=== PATIENT | female | born 1995 | race Caucasian/White ===

== ENCOUNTER 2019-01-18 11:09 | Emergency (ER) | payer OTHER ==
[2019-01-18] MEDS ORDERED: METOCLOPRAMIDE 5 MG/ML 2 ML VIAL IVP STA (11:46)
[2019-01-18] MEDS ORDERED: SODIUM CHLORIDE 0.9% 1,000 ML IV STA (11:46)
--- NOTE | 2019-01-18 12:01 | ED ---
Abdominal Pain HPI - General Chief Complaint: Abdominal Pain Stated Complaint: Abd.pain/6wks Time Seen by Provider: 01/18/19 11:17 Source: patient Mode of arrival: ambulatory Limitations: no limitations - History of Present Illness Initial Comments: Patient is a 23-year-old female presenting to emergency Department with complaints of lower abdominal pain and cramping that started yesterday. Patient is approximately 6 weeks . Patient also admits to spotting yesterday. No spotting today. Patient states she feels like the cramping is getting worse. Patient does have history of piece he was asked. Patient is also a diabetic and takes metformin. Patient has an appointment with her OB in a few weeks. This is patient's first . Patient states history of cholecystectomy. No other abdominal surgeries. Patient denies fever, chills, chest pain, shortness of breath, diarrhea. Patient does admit to nausea and vomiting during her . Patient has no other complaints at this time upon arrival to ER vital signs are stable. - Related Data Allergies Allergy/AdvReac Type Severity Reaction Status Date / Time ibuprofen [From Motrin] Allergy Rash/Hives Verified 01/18/19 11:17 ketorolac [From Toradol] Allergy Rash/Hives Verified 01/18/19 11:17 latex Allergy Rash/Hives Verified 01/18/19 11:17 Penicillins Allergy Unknown Verified 01/18/19 11:17 Childhood Review of Systems ROS Statement: Those systems with pertinent positive or pertinent negative responses have been documented in the HPI. ROS Other: All systems not noted in ROS Statement are negative. Past Medical History Past Medical History: Asthma, Diabetes Mellitus Additional Past Medical History / Comment(s): GASTROPARESIS PYLORIC STENOSIS PCS History of Any Multi-Drug Resistant Organisms: None Reported Past Surgical History: Cholecystectomy, Orthopedic Surgery Additional Past Surgical History / Comment(s): KNEE SURG Past Psychological History: Anxiety, Depression Smoking Status: Former smoker Past Alcohol Use History: None Reported, Occasional Past Drug Use History: Marijuana General Exam - General Exam Comments Initial Comments: GENERAL: Well-appearing, well-nourished and in no acute distress. HEAD: Atraumatic, normocephalic. EYES: Pupils equal round and reactive to light, extraocular movements intact, sclera anicteric, conjunctiva are normal. ENT: TMs normal, nares patent, oropharynx clear without exudates. Moist mucous membranes. NECK: Normal range of motion, supple without lymphadenopathy or JVD. LUNGS: Breath sounds clear to auscultation bilaterally and equal. No wheezes rales or rhonchi. HEART: Regular rate and rhythm without murmurs, rubs or gallops. ABDOMEN: Tenderness to the lower abdomen, suprapubic area. Soft, normoactive bowel sounds. No guarding, no rebound. No masses appreciated. : Deferred EXTREMITIES: Normal range of motion, no pitting or edema. No clubbing or cyanosis. NEUROLOGICAL: Cranial nerves II through XII grossly intact. Normal speech, normal gait. PSYCH: Normal mood, normal affect. SKIN: Warm, Dry, normal turgor, no rashes or lesions noted. Limitations: no limitations Course Vital Signs 01/18/19 11:12 Temperature 98.1 F Pulse Rate 97 Respiratory 18 Rate Blood Pressure 145/84 O2 Sat by Pulse 97 Oximetry Medical Decision Making - Medical Decision Making Patient is a 23-year-old female presenting with lower abdominal cramping since yesterday as well as spotting. Patient is 6 weeks . This is her first . Patient denies any fever, chills. On exam patient has tenderness of lower abdomen. CBC and CMP is within normal limits. Glucose is slightly elevated at 217. Patient is a diabetic. HCG Quant is 13,000. UA shows 4+ glucose, 1+ ketones. No signs of infection. No blood. Patient is blood type A+. Ultrasound reveals a single intrauterine with heart rate of 118. No other abnormalities seen. Patient is stable for discharge at this time. Patient will follow-up with OB as discussed in a few weeks. Return parameters were discussed with the patient she verbalized understanding. Discussed with patient sees increase her fluid intake and monitor her blood glucose. Patient is agreement with this plan of care. Discussed with Dr. Flores. - Lab Data Result diagrams: 01/18/19 11:50 01/18/19 11:50 Lab Results 01/18/19 01/18/19 01/18/19 Range/Units 11:50 11:50 11:50 WBC 8.8 (3.8-10.6) k/uL RBC 4.31 (3.80-5.40) m/uL Hgb 13.0 (11.4-16.0) gm/dL Hct 38.5 (34.0-46.0) % MCV 89.3 (80.0-100.0) fL MCH 30.1 (25.0-35.0) pg MCHC 33.7 (31.0-37.0) g/dL RDW 15.0 (11.5-15.5) % Plt Count 297 (150-450) k/uL Neutrophils % 71 % Lymphocytes % 19 % Monocytes % 5 % Eosinophils % 3 % Basophils % 1 % Neutrophils # 6.3 (1.3-7.7) k/uL Lymphocytes # 1.7 (1.0-4.8) k/uL Monocytes # 0.4 (0-1.0) k/uL Eosinophils # 0.2 (0-0.7) k/uL Basophils # 0.0 (0-0.2) k/uL Sodium 136 L (137-145) mmol/L Potassium 4.2 (3.5-5.1) mmol/L Chloride 104 (98-107) mmol/L Carbon Dioxide 23 (22-30) mmol/L Anion Gap 9 mmol/L BUN 12 (7-17) mg/dL Creatinine 0.48 L (0.52-1.04) mg/dL Est GFR (CKD-EPI)AfAm >90 (>60 ml/min/1.73 sqM) Est GFR (CKD-EPI)NonAf >90 (>60 ml/min/1.73 sqM) Glucose 217 H (74-99) mg/dL Calcium 9.2 (8.4-10.2) mg/dL Total Bilirubin 0.4 (0.2-1.3) mg/dL AST 20 (14-36) U/L ALT 38 (9-52) U/L Alkaline Phosphatase 52 (38-126) U/L Total Protein 6.9 (6.3-8.2) g/dL Albumin 3.9 (3.5-5.0) g/dL HCG, Quant 03103.1 mIU/mL Urine Color Urine Appearance (Clear) Urine pH (5.0-8.0) Ur Specific [place] (1.001-1.035) Urine Protein (Negative) Urine Glucose (UA) (Negative) Urine Ketones (Negative) Urine Blood (Negative) Urine Nitrite (Negative) Urine Bilirubin (Negative) Urine Urobilinogen (<2.0) mg/dL Ur Leukocyte Esterase (Negative) Urine RBC (0-5) /hpf Urine WBC (0-5) /hpf Ur Squamous Epith Cells (0-4) /hpf Urine Bacteria (None) /hpf Urine Mucus (None) /hpf Blood Type A Positive Blood Type Recheck No Previous Record Bld Type Recheck Status [facility] ONLY 01/18/19 Range/Units 11:50 WBC (3.8-10.6) k/uL RBC (3.80-5.40) m/uL Hgb (11.4-16.0) gm/dL Hct (34.0-46.0) % MCV (80.0-100.0) fL MCH (25.0-35.0) pg MCHC (31.0-37.0) g/dL RDW (11.5-15.5) % Plt Count (150-450) k/uL Neutrophils % % Lymphocytes % % Monocytes % % Eosinophils % % Basophils % % Neutrophils # (1.3-7.7) k/uL Lymphocytes # (1.0-4.8) k/uL Monocytes # (0-1.0) k/uL Eosinophils # (0-0.7) k/uL Basophils # (0-0.2) k/uL Sodium (137-145) mmol/L Potassium (3.5-5.1) mmol/L Chloride (98-107) mmol/L Carbon Dioxide (22-30) mmol/L Anion Gap mmol/L BUN (7-17) mg/dL Creatinine (0.52-1.04) mg/dL Est GFR (CKD-EPI)AfAm (>60 ml/min/1.73 sqM) Est GFR (CKD-EPI)NonAf (>60 ml/min/1.73 sqM) Glucose (74-99) mg/dL Calcium (8.4-10.2) mg/dL Total Bilirubin (0.2-1.3) mg/dL AST (14-36) U/L ALT (9-52) U/L Alkaline Phosphatase (38-126) U/L Total Protein (6.3-8.2) g/dL Albumin (3.5-5.0) g/dL HCG, Quant mIU/mL Urine Color Yellow Urine Appearance Cloudy H (Clear) Urine pH 6.0 (5.0-8.0) Ur Specific [place] 1.032 (1.001-1.035) Urine Protein Trace H (Negative) Urine Glucose (UA) 4+ H (Negative) Urine Ketones 1+ H (Negative) Urine Blood Negative (Negative) Urine Nitrite Negative (Negative) Urine Bilirubin Negative (Negative) Urine Urobilinogen <2.0 (<2.0) mg/dL Ur Leukocyte Esterase Negative (Negative) Urine RBC 3 (0-5) /hpf Urine WBC 5 (0-5) /hpf Ur Squamous Epith Cells 13 H (0-4) /hpf Urine Bacteria Occasional H (None) /hpf Urine Mucus Rare H (None) /hpf Blood Type Blood Type Recheck Bld Type Recheck Status Disposition Clinical Impression: Dehydration, and not yet delivered in first trimester, Abdominal cramping Disposition: HOME SELF-CARE Condition: Stable Instructions (If sedation given, give patient instructions): Nausea and Vomiting in (ED), (ED) Additional Instructions: Please return to the Emergency Department if symptoms worsen or any other concerns. Follow-up with OB as discussed in a few weeks. Is patient prescribed a controlled substance at d/c from ED?: No Referrals: Nonstaff,Physician [Primary Care Provider] - 1-2 days
[2019-01-18 12:05] LABS: Basophils % (A) 1 %; Eosinophils # (A) 0.2 k/uL (0-0.7); Eosinophils % (A) 3 %; HCT 38.5 % (34.0-46.0); Lymphocytes # (A) 1.7 k/uL (1.0-4.8); Lymphocytes % (A) 19 %; MCH 30.1 pg (25.0-35.0); MCHC 33.7 g/dL (31.0-37.0); MCV 89.3 fL (80.0-100.0); Mean Platelet Volume 7.8; Monocytes # (A) 0.4 k/uL (0-1.0); Monocytes % (A) 5 %; Neutrophils # (A) 6.3 k/uL (1.3-7.7); Neutrophils % (A) 71 %; Platelet Count 297 k/uL (150-450); RBC 4.31 m/uL (3.80-5.40); WBC 8.8 k/uL (3.8-10.6)
[2019-01-18 12:13] LABS: ALT 38 U/L (9-52); AST 20 U/L (14-36); African American GFR (CKD) >90 (>60 ml/min/1.73 sqM); Albumin 3.9 g/dL (3.5-5.0); Alkaline Phosphatase 52 U/L (38-126); Anion Gap 9 mmol/L; Blood Urea Nitrogen 12 mg/dL (7-17); Calcium 9.2 mg/dL (8.4-10.2); Carbon Dioxide 23 mmol/L (22-30); Chloride 104 mmol/L (98-107); Glucose 217 mg/dL (74-99); Potassium 4.2 mmol/L (3.5-5.1); Sodium 136 mmol/L (137-145); Total Bilirubin 0.4 mg/dL (0.2-1.3); Total Protein 6.9 g/dL (6.3-8.2)
[2019-01-18 12:28] LABS: HCG,Quantitative Serum 13464.1 mIU/mL
--- NOTE | 2019-01-18 12:52 | US ---
EXAMINATION TYPE: Transabdominal DATE OF EXAM: 01/18/2019 12:45 PM COMPARISON: NONE CLINICAL HISTORY: Pain, spotting Pt states cramping and spotting EXAM PERFORMED: Transvaginal (TV) and Transabdominal (TA) EXAM MEASUREMENTS: GESTATIONAL AGE / DATING Physician Established: Not yet established Dates by LMP: (12 weeks/1 days) EDC: 08/01/2019 Dates by First Scan: No prior Dates by Current Scan for: (6 weeks/1 days) EDC: 09/12/2019 MATERNAL ANATOMY Uterus: 7.5 x 4.3 x 5.4 cm Right Ovary: 2.7 x 1.8 x 2.4 cm Left Ovary: 2.4 x 1.7 x 1.7 cm Post CDS / Adnexa: wnl Presence of free fluid: No Presence of corpus luteal cyst: Right Ovary= 1.1 x 1.1 x 1.2 cm Presence of subchorionic bleed: No GESTATION / SURVEY CRL: 0.4 cm (6 weeks/1 days) MSD: wnl Yolk Sac (normal less than 6mm): 3mm Heart Rate: 118 bpm Rhythm: Normal IUP: Live IUP Date of LMP: Pt unsure, thinks middle of October Beta HcG (if available): Not available at this time IMPRESSION: Single live intrauterine has a sonographic age of 6 weeks and 1 day and estimat ed date of delivery of 09/12/2019, discordant with menstrual age.
[2019-01-18 13:26] LABS: Appearance,Urine Cloudy (Clear); Bacteria,Urine Occasional /hpf; Bilirubin,Urine Negative (Negative); Blood,Urine Negative (Negative); Color,Urine Yellow; Glucose,Urine (UA) 4+ (Negative); Ketones,Urine 1+ (Negative); Leukocyte Esterase,Urine Negative (Negative); Mucus,Urine Rare /hpf; Nitrite,Urine Negative (Negative); Protein,Urine Trace (Negative); RBC,Urine 3 /hpf (0-5); Specific Gravity,Urine 1.032 (1.001-1.035); Squamous Epithelial Cell,Urine 13 /hpf (0-4); Urobilinogen,Urine <2.0 mg/dL (<2.0)
[2019-01-18 14:03] VITALS: BP 113/55; PULSE 83; RESP 16; TEMP 98
== END 2019-01-18 14:00 | disposition home or self-care (01) ==
LOC: EC 11:09
DX: O99.281 Endocrine, nutritional and metabolic diseases complicating pregnancy, first trimester (principal); E86.0 Dehydration; O99.89 Other specified diseases and conditions complicating pregnancy, childbirth and the puerperium; R10.30 Lower abdominal pain, unspecified; O24.111 Pre-existing type 2 diabetes mellitus, in pregnancy, first trimester; E11.43 Type 2 diabetes mellitus with diabetic autonomic (poly)neuropathy; K31.84 Gastroparesis; O21.9 Vomiting of pregnancy, unspecified; Z67.10 Type A blood, Rh positive; Z87.891 Personal history of nicotine dependence; Z88.0 Allergy status to penicillin; Z88.6 Allergy status to analgesic agent; Z91.040 Latex allergy status; Z79.84 Long term (current) use of oral hypoglycemic drugs; Z90.49 Acquired absence of other specified parts of digestive tract; Z3A.01 Less than 8 weeks gestation of pregnancy
CPT/HCPCS: 36415; 86900; 86901; 80053; 85025; 81001; 84702; 76801; 76817; 99284; 96374; 96361 ×2; J2765

== ENCOUNTER 2019-03-02 09:58 | Emergency (ER) | payer OTHER ==
[2019-03-02 10:06] VITALS: TEMP 98.9
--- NOTE | 2019-03-02 10:34 | ED ---
Abdominal Pain HPI - General Chief Complaint: Abdominal Pain Stated Complaint: 12 wks preg/high risk/cramping Time Seen by Provider: 03/02/19 10:11 Source: patient, RN notes reviewed Mode of arrival: ambulatory Limitations: no limitations - History of Present Illness Initial Comments: 23-year-old female presents emergency Department chief complaint of abdominal cramping . Patient is A5, currently 12 weeks 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 Patient states she has no vaginal bleeding or vaginal discharge no dysuria no hematuria. Patient states Started Last Night. Patient Does Have Occasional Nausea Vomiting No Current Symptoms. - Related Data Home Medications Medication Instructions Recorded Confirmed INSULIN ASPART (NovoLOG) [NovoLOG 14 unit SQ HS 03/02/19 03/02/19 (formulary)] INSULIN ASPART (NovoLOG) [NovoLOG 24 unit SQ QAM 03/02/19 03/02/19 (formulary)] Insulin NPH Human Isophane 14 unit SQ HS 03/02/19 03/02/19 [NovoLIN N] Insulin NPH Human Isophane 36 unit SQ QAM 03/02/19 03/02/19 [NovoLIN N] Allergies Allergy/AdvReac Type Severity Reaction Status Date / Time ibuprofen [From Motrin] Allergy Rash/Hives Verified 03/02/19 11:31 ketorolac [From Toradol] Allergy Rash/Hives Verified 03/02/19 11:31 latex Allergy Rash/Hives Verified 03/02/19 11:31 orange juice [[place]] Allergy Unknown Verified 03/02/19 11:31 Penicillins Allergy Unknown Verified 03/02/19 11:31 Childhood Review of Systems ROS Statement: Those systems with pertinent positive or pertinent negative responses have been documented in the HPI. ROS Other: All systems not noted in ROS Statement are negative. Past Medical History Past Medical History: Asthma, Diabetes Mellitus Additional Past Medical History / Comment(s): GASTROPARESIS PYLORIC STENOSIS PCS History of Any Multi-Drug Resistant Organisms: None Reported Past Surgical History: Cholecystectomy, Orthopedic Surgery Additional Past Surgical History / Comment(s): KNEE SURG Past Psychological History: Anxiety, Depression Smoking Status: Former smoker Past Alcohol Use History: None Reported, Occasional Past Drug Use History: Marijuana General Exam Limitations: no limitations General appearance: alert, in no apparent distress Head exam: Present: atraumatic, normocephalic, normal inspection Eye exam: Present: normal appearance, PERRL, EOMI. Absent: scleral icterus, conjunctival injection, periorbital swelling ENT exam: Present: normal exam, normal oropharynx, mucous membranes moist Respiratory exam: Present: normal lung sounds bilaterally. Absent: respiratory distress, wheezes, rales, rhonchi, stridor Cardiovascular Exam: Present: regular rate, normal rhythm, normal heart sounds. Absent: systolic murmur, diastolic murmur, rubs, gallop, clicks GI/Abdominal exam: Present: soft, tenderness (Mild suprapubic), normal bowel sounds. Absent: distended, guarding, rebound, rigid Back exam: Absent: CVA tenderness (R), CVA tenderness (L) Neurological exam: Present: alert Skin exam: Present: warm, dry, intact, normal color. Absent: rash Course Vital Signs 03/02/19 10:01 Temperature 98.9 F Pulse Rate 87 Respiratory 17 Rate Blood Pressure 114/73 O2 Sat by Pulse 100 Oximetry Medical Decision Making - Medical Decision Making Urinalysis and ultrasound unremarkable. Patient will be discharged is advised follow-up with BUSINESS RELATIONS MANAGER tomorrow. - Lab Data Lab Results 03/02/19 Range/Units 10:26 Urine Color Yellow Urine Appearance Cloudy H (Clear) Urine pH 5.5 (5.0-8.0) Ur Specific [place] 1.013 (1.001-1.035) Urine Protein Negative (Negative) Urine Glucose (UA) Negative (Negative) Urine Ketones Negative (Negative) Urine Blood Negative (Negative) Urine Nitrite Negative (Negative) Urine Bilirubin Negative (Negative) Urine Urobilinogen <2.0 (<2.0) mg/dL Ur Leukocyte Esterase Small H (Negative) Urine RBC <1 (0-5) /hpf Urine WBC 2 (0-5) /hpf Ur Squamous Epith Cells 16 H (0-4) /hpf Amorphous Sediment Rare H (None) /hpf Urine Bacteria Rare H (None) /hpf Disposition Clinical Impression: Abdominal pain during Disposition: HOME SELF-CARE Condition: Stable Instructions (If sedation given, give patient instructions): Abdominal Pain in (ED) Additional Instructions: Please return to the Emergency Department if symptoms worsen or any other concerns. Is patient prescribed a controlled substance at d/c from ED?: No Referrals: Nonstaff,Physician [Primary Care Provider] - 1-2 days Time of Disposition: 11:39
[2019-03-02 10:48] LABS: Amorphous Sediment,Urine Rare /hpf; Appearance,Urine Cloudy (Clear); Bacteria,Urine Rare /hpf; Bilirubin,Urine Negative (Negative); Blood,Urine Negative (Negative); Color,Urine Yellow; Glucose,Urine (UA) Negative (Negative); Ketones,Urine Negative (Negative); Leukocyte Esterase,Urine Small (Negative); Nitrite,Urine Negative (Negative); PH, Urine 5.5 (5.0-8.0); Protein,Urine Negative (Negative); RBC,Urine <1 /hpf (0-5); Specific Gravity,Urine 1.013 (1.001-1.035); Squamous Epithelial Cell,Urine 16 /hpf (0-4); Urobilinogen,Urine <2.0 mg/dL (<2.0)
--- NOTE | 2019-03-02 11:28 | US ---
EXAMINATION TYPE: Transabdominal DATE OF EXAM: 03/02/2019 10:52 AM COMPARISON: US 2018 CLINICAL HISTORY: pain. Cramping x 1 day, 6, para 5 EXAM PERFORMED: Transabdominal (TA) EXAM MEASUREMENTS: GESTATIONAL AGE / DATING Physician Established: (12 weeks/0 days) EDC: 09/14/2019 Dates by LMP: Unsure Dates by First Scan: (12 weeks/2 days) EDC: 09/12/2019 Dates by Current Scan for: (12 weeks/4 days) EDC: 09/10/2019 MATERNAL ANATOMY Uterus: 10.7 x 7.2 x 7.8cm, anteverted Right Ovary: 2.3 x 1.7 x 1.8cm Left Ovary: 2.7 x 1.7 x 1.6cm Post CDS / Adnexa: wnl Presence of free fluid: no Presence of corpus luteal cyst: not seen Presence of subchorionic bleed: no GESTATION / SURVEY CRL: 6.0cm (12 weeks/4 days) Yolk Sac (normal less than 6mm): not seen Heart Rate: 159 bpm Rhythm: Normal IUP: Viable IUP Date of LMP: Unsure Beta HcG (if available): Not available at time of exam. Viable single IUP measuring 12 weeks 4 days with a heart rate of 159bpm and an estimated delivery robert e of 09/10/2019. IMPRESSION: Single viable intrauterine corresponding to ultrasound age 12 weeks 4 days with estimated d ate of delivery 09/10/2019 by today's exam.
[2019-03-02 11:45] VITALS: BP 118/76; PULSE 85; RESP 16
== END 2019-03-02 11:44 | disposition home or self-care (01) ==
LOC: EC 09:58
DX: O99.89 Other specified diseases and conditions complicating pregnancy, childbirth and the puerperium (principal); R10.9 Unspecified abdominal pain; O24.911 Unspecified diabetes mellitus in pregnancy, first trimester; Z79.4 Long term (current) use of insulin; Z3A.12 12 weeks gestation of pregnancy; Z87.891 Personal history of nicotine dependence; Z88.0 Allergy status to penicillin; Z88.6 Allergy status to analgesic agent; Z91.040 Latex allergy status; Z91.018 Allergy to other foods
CPT/HCPCS: 76801; 81001; 99284